=== PATIENT | male | born 1950 | race Hispanic/Latino ===

== ENCOUNTER 2017-12-09 09:09 | Day surgery (SDC) | payer BC ==
[2017-12-07 08:15] VITALS: BMI 29.0
[2017-12-09] MEDS ORDERED: Bupivacaine 0.5% Inj(30mL) ONE (11:02)
[2017-12-09] MEDS ORDERED: Midazolam 2 MG/2 ML VIAL ONE (11:11)
[2017-12-09] MEDS ORDERED: Propofol 10 mg/ml Inj (20 ML) ONE (11:11)
[2017-12-09] MEDS ORDERED: Rocuronium 10 mg/ml (5 ml) ONE (11:12)
[2017-12-09] MEDS ORDERED: Phenylephrine 10 mg/ml Inj ONE (12:04)
[2017-12-09] MEDS ORDERED: Neostigmine Methylsulfate 3mg/3ml Syringe IV ONE (13:39)
[2017-12-09] MEDS ORDERED: HYDROmorphone 0.5 mg/0.5 ml ISec IVP PRN ×2 (14:04→14:08)
--- NOTE | 2017-12-09 14:06 | PCM.SURG1 ---
Surgeon's Initial Post Op Note - Surgeon's Notes Surgeon: Orin Manager Animation: Liana PGY3, Aurn MSIII Type of Anesthesia: General Endo, Local Pre-Operative Diagnosis: Incisional hernia Operative Findings: Incerceated incisional hernia Post-Operative Diagnosis: same Operation Performed: laparoscopic incisional hernia repair w. mesh Specimen/Specimens Removed: hernia sac Estimated Blood Loss: EBL {In ML}: 5 Blood Products Given: N/A Drains Used: No Drains Post-Op Condition: Good Date of Surgery/Procedure: 12/09/17 Time of Surgery/Procedure: 14:06
[2017-12-09 14:22] VITALS: RESP 18
[2017-12-09 14:59] VITALS: TEMP 97.6
[2017-12-09 18:58] VITALS: BP 134/72; PULSE 70; O2SAT 99
--- NOTE | 2017-12-18 18:36 | OP ---
PROCEDURE DATE: 12/09/2017 PREOPERATIVE DIAGNOSIS: Incarcerated incisional hernia. POSTOPERATIVE DIAGNOSIS: Incarcerated incisional hernia. PROCEDURE PERFORMED: Laparoscopic repair of incarcerated incisional hernia with Symbotex mesh. SURGEON: Shree Sr MD. WINDOW UNIT [employer] CONDITIONING MECHANIC: Dr. Gaines. ANESTHESIA: General endotracheal anesthesia. ANESTHESIOLOGIST: As per OR record. SPECIMEN: Hernia sac. INDICATIONS: The patient is a 66-year-old male with a history of midline abdominal bulge associated with tenderness and discomfort. The patient was seen in the office, noted to have an incisional hernia, associated with tenderness and discomfort and partially reducible. The patient was scheduled for the laparoscopic repair of the hernia. DESCRIPTION OF PROCEDURE: The patient was brought to the operating room, placed on the operating table in supine position. The patient was connected to the EKG, blood pressure, and pulse oximetry monitors. The patient then underwent general endotracheal anesthesia and was prepped and draped in the usual sterile fashion. First using lidocaine with some Marcaine, the area of the left subcostal margin was infiltrated and carefully under direct visualization through the Visiport, a 12 mm trocar was inserted into the abdominal cavity. Once pneumoperitoneum was obtained, a careful evaluation of abdominal cavity revealed the presence of omentum stuck in the incisional hernia. A second 5 mm trocar was inserted in the left lower quadrant and careful dissection began in order to dissect out the hernia sac. Once omentum was completely removed from the hernia and appeared to be viable, we then proceeded with removing the hernia sac and sending it as a specimen. The area of the hernia defect was carefully evaluated and appeared to be about 2-2.5 cm in diameter. A 12 cm patch of Symbotex mesh was then placed into the abdominal cavity and pulled against the defect with exposed portion of the mesh. That was then tacked to the abdominal wall in two rows of tacks, one at the edge of the mesh and was about 2 cm closer to the defect. The patch appeared to be lying perfectly well and the defect was covered and the underlying tissue appeared to have no evidence of any bleeding. At this point, we started releasing pneumoperitoneum carefully and checked both trocars and there was no bleeding noted. Once the pneumoperitoneum was completely released, trocars were removed and the wounds closed in layers using 0 Vicryl for the fascia, 3-0 Vicryl for the subcutaneous tissue, and 4-0 Monocryl for the skin. Sterile Dermabond dressing was applied to the wound. The patient tolerated the procedure well and there were no complications. The patient was awakened and transferred to the recovery room for further observation. Shree Sr MD MTDD
== END 2017-12-09 19:00 | disposition home or self-care (01) ==
LOC: SDS 09:09
PROVIDERS: ATTEND General Practice
DX: K43.0 Incisional hernia with obstruction, without gangrene (principal); I10 Essential (primary) hypertension
CPT/HCPCS: 49655; 88302; C1781; J0690; J1100; J1885; J2001; J2250; J2405; J2704; J2710; J3010; J7120

== ENCOUNTER 2018-01-01 13:04 | Emergency (ER) | payer MEDICARE, BC ==
[2018-01-01 13:04] VITALS: BMI 29.0
[2018-01-01 13:27] VITALS: RESP 18
[2018-01-01] MEDS ORDERED: Sodium Chloride 0.9% 1,000 ML IV STA (13:45)
[2018-01-01] MEDS ORDERED: Iohexol 350 MG/100 ML VIAL ONE (13:58)
[2018-01-01] MEDS ORDERED: Iohexol 240 (50 ml) ONE (13:58)
[2018-01-01 14:15] LABS: VENOUS BLOOD GAS BASE EXCESS 7.3 mmol/L (0.0-2.0); VENOUS BLOOD GAS PO2 49 mm/Hg (30-55); VENOUS BLOOD PH 7.41 (7.32-7.43)
[2018-01-01 14:20] LABS: BASO # 0.03 K/mm3 (0.0-2.0); BASO % 0.3 % (0.0-3.0); EOS # 0.2 (0.0-0.7); EOS % 2.7 % (1.5-5.0); GRAN # 6.18 (1.4-6.5); GRAN % 70.8 % (50.0-68.0); HEMOGLOBIN 12.7 g/dL (14.0-18.0); LYMPH # 1.6 (1.2-3.4); LYMPH % 17.8 % (22.0-35.0); MEAN CELL VOLUME 85.3 fl (80.0-105.0); MEAN CORPUSCULAR HEMOGLOBIN 29.3 pg (25.0-35.0); MEAN CORPUSCULAR HGB CONC 34.3 g/dl (31.0-37.0); MEAN PLATELET VOLUME 9.6 fl (7.0-11.0); MONO # 0.7 (0.1-0.6); MONO % 8.4 % (1.0-6.0); RBC 4.34 10^6/uL (3.5-6.1); RED CELL DISTRIBUTION WIDTH 13.6 % (11.5-14.5); WHITE BLOOD COUNT 8.7 10^3/ul (4.5-11.0)
[2018-01-01 14:24] LABS: ALB/GLOB RATIO 1.3 (1.1-1.8); ALBUMIN 3.8 g/dL (3.0-4.8); ALT/SGPT 30 U/L (7-56); AST/SGOT 22 U/L (17-59); BLOOD UREA NITROGEN 12 mg/dL (7-21); CALCIUM 8.9 mg/dL (8.4-10.5); GFR AFRICAN-AMERICAN > 60; GFR NON-AFRICAN AMERICAN > 60; LIPASE 64 U/L (23-300)
[2018-01-01 14:36] LABS: INR 1.14 (0.93-1.08)
[2018-01-01] MEDS ORDERED: Potassium Chloride 20 mEq ER Tab PO STA (14:49)
[2018-01-01 15:40] LABS: URINE BILIRUBIN NEGATIVE (NEGATIVE); URINE BLOOD NEGATIVE (NEGATIVE); URINE GLUCOSE (UA) NEGATIVE (NEGATIVE); URINE LEUKOCYTE ESTERASE NEGATIVE Leu/uL (NEGATIVE); URINE PROTEIN NEGATIVE mg/dL (<30 mg/dL); URINE UROBILINOGEN 0.2 E.U./dL (<1 E.U./dL)
[2018-01-01 15:41] LABS: URINE APPEARANCE CLEAR (CLEAR); URINE COLOR YELLOW (YELLOW)
--- NOTE | 2018-01-01 17:04 | CT ---
PROCEDURE: CT Abdomen and Pelvis with contrast HISTORY: Abdominal pain. Relevant surgical history: Recent hernia repair. Presenting with symptoms of constipation COMPARISON: 03/10/2016 abdominal ultrasound TECHNIQUE: Contrast dose: 100 cc Omnipaque 350 Radiation dose: Total exam DLP = mGy-cm. This CT exam was performed using one or more of the following dose reduction techniques: Automated exposure control, adjustment of the mA and/or kV according to patient size, and/or use of iterative reconstruction technique. FINDINGS: LOWER THORAX: Unremarkable. LIVER: Hepatic steatosis. No focal masses. No intrahepatic bile duct dilatation or perihepatic ascites. . Incidental finding(s): Several tiny less than 1 cm simple cysts. GALLBLADDER AND BILE DUCTS: Unremarkable. PANCREAS: Unremarkable. No gross lesion or ductal dilatation. SPLEEN: Unremarkable. ADRENALS: Unremarkable. No mass. KIDNEYS AND URETERS: Small, less than 3 mm bilateral nonobstructing renal calculi. . No hydronephrosis. No solid mass. Incidental finding(s): Simple cyst projecting off the inferior aspect of the right kidney measuring less than 1 cm VASCULATURE: Unremarkable. No aortic aneurysm. BOWEL: Twenty-three changes involving distal ileum/terminal ileum extending to the ileocecal valve, sparing the adjacent cecum. The appendix is not visualized. Severe diverticular disease primarily affecting left hemicolon. There is marked thickening of the wall of the descending colon and sigmoid at the site of diverticular disease. However in the absence of oral contrast in this location is difficult to rule out superimposed acute diverticulitis. APPENDIX: Nonvisualized cyst PERITONEUM: Low volume intra-abdominal and pelvic ascites. LYMPH NODES: Unremarkable. No enlarged lymph nodes. BLADDER: Unremarkable. REPRODUCTIVE: Unremarkable. BONES: No acute fracture. OTHER FINDINGS: Anterior abdominal wall fluid collection midline presumably related to recent hernia surgery. This measures 3.9 x 4.6 cm and is more phlegmonous than well-defined. Inflammatory changes extend into the peritoneal cavity throughout diastases/postoperative changes 2.8 cm wide. Inflammatory changes or postoperative change abut adjacent small bowel. There is no discrete drainable collection or visualize sinus tract. IMPRESSION: 1. Postoperative changes presumed to account for phlegmonous process midline anterior abdominal wall extending from the skin surface through a A-comm component of diastases of the rectum. Subjacent intraperitoneal postoperative/inflammatory changes without drainable collection. 2. Short segment terminal ileitis-distal without involvement of the ileocecal valve cecum. 3. Profound diverticular cc, questionable superimposed sigmoid diverticulitis. 4. Low volume intra-abdominal and pelvic ascites. Additional benign and/or incidental findings described above.
--- NOTE | 2018-01-01 18:03 | ED PDOC ---
Arrival/HPI - General Chief Complaint: Abdominal Pain Time Seen by Provider: 01/01/18 13:12 Historian: Patient - History of Present Illness Narrative History of Present Illness (Text): 01/01/18 17:37 A 67 year old male, whose past medical history includes hypertension and diverticulitis, presents to the emergency department complaining of diffusely abdominal pain since yesterday. Patient reports also experiencing subjective fever and nausea. Patient denies any vomiting, diarrhea, bloody stool, hematuria , or any other complaints at this time. Also, patient mentions having umbilical hernia repair on 12/09/2017. No PMD Time/Duration: 24 hours Past Medical History - Provider Review Nursing Documentation Reviewed: Yes - Infectious Disease Hx of Infectious Diseases: None - Cardiac Hx Hypertension: Yes Hx Pacemaker: No - Pulmonary Hx Respiratory Disorders: No - Neurological Hx Paralysis: No - HEENT Other/Comment: detached retina - Renal Hx Renal Disorder: No - Endocrine/Metabolic Hx Endocrine Disorders: No - Hematological/Oncological Hx Blood Transfusions: No - Integumentary Hx Dermatological Disorder: No - Musculoskeletal/Rheumatological Hx Musculoskeletal Disorders: No - Gastrointestinal Hx Diverticulitis: Yes Other/Comment: Umbilical hernia - s/p repair with mesh 3 weeks ago from 01/01/18 - Genitourinary/Gynecological Hx Genitourinary Disorders: No - Psychiatric Hx Psychophysiologic Disorder: No Hx Substance Use: No - Surgical History Hx Cholecystectomy: Yes - Anesthesia Hx Anesthesia: Yes Hx Anesthesia Reactions: No Hx Malignant Hyperthermia: No Family/Social History - Physician Review Nursing Documentation Reviewed: Yes Family/Social History: No Known Family HX Smoking Status: Never Smoked Hx Alcohol Use: No Hx Substance Use: No Allergies/Home Meds Allergies/Adverse Reactions: Allergies No Known Allergies Allergy (Verified 03/10/16 18:20) Home Medications: Home Meds Medication Instructions Recorded Confirmed amLODIPine [Norvasc] 10 mg PO DAILY 03/13/16 12/09/17 Ascorbic Acid [Vitamin C] 2,000 units PO DAILY 12/07/17 12/09/17 Blue-Green Algae [Spirulina] 3,000 mg PO DAILY 12/07/17 12/09/17 Cholecalciferol [Vitamin D 1000 IU] 1,000 mg PO DAILY 12/07/17 12/09/17 Cod Liver Oil [Cod Liver Oil] 1 tab PO DAILY 12/07/17 12/09/17 Doctors Best Comprehensive 1 tab PO DAILY 12/07/17 12/09/17 Prostate Formula Flaxseed Oil [Flax Oil] 1 tab PO DAILY 12/07/17 12/09/17 Garlic [Odor Free Garlic-X] 1 tab PO DAILY 12/07/17 12/09/17 Gluc/Kee-MSM#1/C/Yunior/Jluis/Bor 1 tab PO DAILY 12/07/17 12/09/17 [Osteo Bi-Flex Caplet] L-Argenine 1,000 mg PO BID 12/07/17 12/09/17 Multivitamin [Daily Kendell] 1 tab PO DAILY 12/07/17 12/09/17 Pycnogenol 50 mg PO DAILY 12/07/17 12/09/17 Ubidecarenone/Vit E Acet [Co Q-10 100 mg PO DAILY 12/07/17 12/09/17 100 mg Softgel] traMADol [Ultram] 50 mg PO Q6H PRN 12/09/17 12/09/17 Review of Systems - Physician Review All systems were reviewed & negative as marked: Yes - Review of Systems Constitutional: Fevers (subjective) Gastrointestinal: Abdominal Pain, Nausea. absent: Stool Changes (no bloody stool), Diarrhea, Vomiting Genitourinary Male: absent: Hematuria Physical Exam Vital Signs Reviewed: Yes Vital Signs Temp Pulse Resp BP Pulse Ox 01/01/18 18:03 98.2 F 72 18 135/80 98 01/01/18 16:25 82 18 133/88 96 01/01/18 13:04 98.6 F 86 18 125/93 H 93 L Temperature: Afebrile Blood Pressure: Normal Pulse: Regular Respiratory Rate: Normal Appearance: Positive for: Well-Appearing Pain Distress: None Mental Status: Positive for: Alert and Oriented X 3 - Systems Exam Respiratory/Chest: Present: Clear to Auscultation, Good Air Exchange. No: Respiratory Distress, Accessory Muscle Use Cardiovascular: Present: Regular Rate and Rhythm, Normal S1, S2. No: Murmurs Abdomen: Present: Tenderness (diffusely), Other (2 surgical scars from past surgery) Upper Extremity: Present: Normal Inspection. No: Cyanosis, Edema Lower Extremity: Present: Normal Inspection. No: Edema Neurological: Present: GCS=15, CN II-XII Intact, Speech Normal Skin: Present: Warm, Dry, Normal Color. No: Rashes Psychiatric: Present: Alert, Oriented x 3, Normal Insight, Normal Concentration Medical Decision Making ED Course and Treatment: 01/01/18 17:41 Impression: 67 year old male with diffuse abdominal tenderness, nausea, and subjective fever. Physical exam shows abdominal tenderness, 2 surgical scars from past surgery on abdomen. Plan: -- Abd/Pelvis CT -- Cipro -- Flagyl -- Potassium Chloride K-Dur -- Labs -- Blood Culture -- Urine Culture -- IV Fluids -- Urinalysis -- Reassess and disposition Progress Notes: 01/01/2018 17:03 Abd/Pelvis CT FINDINGS: LOWER THORAX: Unremarkable. LIVER: Hepatic steatosis. No focal masses. No intrahepatic bile duct dilatation or perihepatic ascites. . Incidental finding(s): Several tiny less than 1 cm simple cysts. GALLBLADDER AND BILE DUCTS: Unremarkable. PANCREAS: Unremarkable. No gross lesion or ductal dilatation. SPLEEN: Unremarkable. ADRENALS: Unremarkable. No mass. KIDNEYS AND URETERS: Small, less than 3 mm bilateral nonobstructing renal calculi. . No hydronephrosis. No solid mass. Incidental finding(s): Simple cyst projecting off the inferior aspect of the right kidney measuring less than 1 cm VASCULATURE: Unremarkable. No aortic aneurysm. BOWEL: Twenty-three changes involving distal ileum/terminal ileum extending to the ileocecal valve, sparing the adjacent cecum. The appendix is not visualized. Severe diverticular disease primarily affecting left hemicolon. There is marked thickening of the wall of the descending colon and sigmoid at the site of diverticular disease. However in the absence of oral contrast in this location is difficult to rule out superimposed acute diverticulitis. APPENDIX: Nonvisualized cyst PERITONEUM: Low volume intra-abdominal and pelvic ascites. LYMPH NODES: Unremarkable. No enlarged lymph nodes. BLADDER: Unremarkable. REPRODUCTIVE: Unremarkable. BONES: No acute fracture. OTHER FINDINGS: Anterior abdominal wall fluid collection midline presumably related to recent hernia surgery. This measures 3.9 x 4.6 cm and is more phlegmonous than well- defined. Inflammatory changes extend into the peritoneal cavity throughout diastases/postoperative changes 2.8 cm wide. Inflammatory changes or postoperative change abut adjacent small bowel. There is no discrete drainable collection or visualize sinus tract. IMPRESSION: 1. Postoperative changes presumed to account for phlegmonous process midline anterior abdominal wall extending from the skin surface through a A-comm component of diastases of the rectum. Subjacent intraperitoneal postoperative/ inflammatory changes without drainable collection. 2. Short segment terminal ileitis-distal without involvement of the ileocecal valve cecum. 3. Profound diverticular cc, questionable superimposed sigmoid diverticulitis. 4. Low volume intra-abdominal and pelvic ascites. Additional benign and/or incidental findings described above. Dictator: Yunier Warren MD 01/01/18 17:[address] Dixon about patient's results. Plan is for patient to be treated as outpatient. Dr. Dixon will see patient tomorrow morning. - Lab Interpretations Lab Results: 01/01/18 14:10 01/01/18 14:10 Lab Results 01/01/18 15:36: Urine Color Yellow, Urine Appearance Clear, Urine pH 7.0, Ur Specific [place] 1.010, Urine Protein Negative, Urine Glucose (UA) Negative, Urine Ketones Trace H, Urine Blood Negative, Urine Nitrate Negative, Urine Bilirubin Negative, Urine Urobilinogen 0.2, Ur Leukocyte Esterase Negative 01/01/18 14:10: pO2 49, VBG pH 7.41, VBG pCO2 53.0, VBG HCO3 33.6 H, VBG Total CO2 35.2 H, VBG O2 Sat (Calc) 88.9 H, VBG Base Excess 7.3 H, VBG Potassium 2.7 L , Sodium 141.0, Chloride 104.0, Glucose 107, Lactate 0.9, FiO2 21.0, Venous Blood Potassium 2.7 L 01/01/18 14:10: Sodium 145, Chloride 103, Potassium 3.0 L, Carbon Dioxide 30, Anion Gap 15, BUN 12, Creatinine 0.9, Est GFR ( Amer) > 60, Est GFR (Non- Af Amer) > 60, Random Glucose 105, Calcium 8.9, Magnesium 2.1, Total Bilirubin 0.8, AST 22, ALT 30, Alkaline Phosphatase 52, Total Protein 6.7, Albumin 3.8, Globulin 3.0, Albumin/Globulin Ratio 1.3, Lipase 64 01/01/18 14:10: PT 13.0 H, INR 1.14 H, APTT 32.0 01/01/18 14:10: WBC 8.7 D, RBC 4.34, Hgb 12.7 L, Hct 37.0 L, MCV 85.3, MCH 29.3 , MCHC 34.3, RDW 13.6, Plt Count 223, MPV 9.6, Gran % 70.8 H, Lymph % (Auto) 17.8 L, Whitman % (Auto) 8.4 H, Eos % (Auto) 2.7, Baso % (Auto) 0.3, Gran # 6.18, Lymph # (Auto) 1.6, Whitman # (Auto) 0.7 H, Eos # (Auto) 0.2, Baso # (Auto) 0.03 I have reviewed the lab results: Yes - RAD Interpretation Radiology Orders: 01/01/18 13:45 ABD PELVIS PO & IV CONTRAST [CT] Stat - Medication Orders Current Medication Orders: Discontinued Medications Ciprofloxacin (Cipro) 500 mg PO STAT STA PRN Reason: Protocol Stop: 01/01/18 17:42 Last Admin: 01/01/18 17:53 Dose: 500 mg Sodium Chloride (Sodium Chloride 0.9%) 1,000 mls @ 250 mls/hr IV .Q4H STA Stop: 01/01/18 17:44 Last Admin: 01/01/18 14:15 Dose: 250 mls/hr eMAR Start Stop Document 01/01/18 14:15 GMD (Rec: 01/01/18 14:15 GMD [id number]) Intravenous Solution Start Date 01/01/18 Start Time 14:15 End Date 01/01/18 End time 18:15 Total Infusion Time 240 Metronidazole (Flagyl) 500 mg PO STAT STA PRN Reason: Protocol Stop: 01/01/18 17:42 Last Admin: 01/01/18 17:53 Dose: 500 mg Potassium Chloride (K-Dur 20 Meq Er Tab) 40 meq PO STAT STA Stop: 01/01/18 14:50 Last Admin: 01/01/18 15:15 Dose: 40 meq - Scribe Statement The provider has reviewed the documentation as recorded by the [place] Provider Scribe Attestation: All medical record entries made by the Scribe were at my direction and personally dictated by me. I have reviewed the chart and agree that the record accurately reflects my personal performance of the history, physical exam, medical decision making, and the department course for this patient. I have also personally directed, reviewed, and agree with the discharge instructions and disposition. Disposition/Present on Arrival - Present on Arrival Any Indicators Present on Arrival: No History of DVT/PE: No History of Uncontrolled Diabetes: No Urinary Catheter: No History of Decub. Ulcer: No History Surgical Site Infection Following: None - Disposition Have Diagnosis and Disposition been Completed?: Yes Diagnosis: Diverticulitis Disposition: HOME/ ROUTINE Disposition Time: 14:30 Condition: GOOD Discharge Instructions (ExitCare): Diverticulitis (DC) Additional Instructions: Thank you for letting us take care of you today. The emergency medical care you received today was directed at your acute symptoms. If you were prescribed any medication, please fill it and take as directed. It may take several days for your symptoms to resolve. Return to the Emergency Department if your symptoms worsen, do not improve, or if you have any other problems. Please contact your doctor or call one of the physicians/clinics you have been referred to that are listed on the Patient Visit Information form that is included in your discharge packet. Bring any paperwork you were given at discharge with you along with any medications you are taking to your follow up visit. Our treatment cannot replace ongoing medical care by a primary care provider (PCP) outside of the emergency department. Thank you for allowing the [facility] team to be part of your care today. Follow up with your doctor tomorrow morning for re-evaluation and further management. Prescriptions: Ciprofloxacin [Cipro] 500 mg PO BID #20 tab metroNIDAZOLE [Flagyl] 500 mg PO Q8 #30 tab Referrals: Leonidas Dixon MD [Family Provider] - Follow up with primary Forms: [place] (Romanian)
[2018-01-01 18:05] VITALS: BP 135/80; PULSE 72; TEMP 98.2; O2SAT 98
== END 2018-01-01 18:38 | disposition home or self-care (01) ==
LOC: ED 13:04
DX: K57.92 Diverticulitis of intestine, part unspecified, without perforation or abscess without bleeding (principal); I10 Essential (primary) hypertension; Z90.49 Acquired absence of other specified parts of digestive tract
CPT/HCPCS: 74177; 80053; 81003; 82803; 83690; 83735; 85025; 85610; 85730; 87040; 87086; 96360; 96361; 99284; J7040; Q9966; Q9967

== ENCOUNTER 2018-06-15 13:37 | Observation (INO) | payer BC, MEDICARE ==
[2018-06-15 14:51] LABS: BASO # 0.05 K/mm3 (0.0-2.0); BASO % 0.9 % (0.0-3.0); EOS # 0.2 (0.0-0.7); EOS % 3.7 % (1.5-5.0); GRAN # 3.4 (1.4-6.5); GRAN % 59.9 % (50.0-68.0); HEMOGLOBIN 13.2 g/dL (14.0-18.0); LYMPH # 1.5 (1.2-3.4); LYMPH % 27.2 % (22.0-35.0); MEAN CELL VOLUME 85.6 fl (80.0-105.0); MEAN CORPUSCULAR HEMOGLOBIN 28.8 pg (25.0-35.0); MEAN CORPUSCULAR HGB CONC 33.6 g/dl (31.0-37.0); MEAN PLATELET VOLUME 10.2 fl (7.0-11.0); MONO # 0.5 (0.1-0.6); MONO % 8.3 % (1.0-6.0); RBC 4.59 10^6/uL (3.5-6.1); RED CELL DISTRIBUTION WIDTH 14.8 % (11.5-14.5); WHITE BLOOD COUNT 5.7 10^3/uL (4.5-11.0)
[2018-06-15 15:09] LABS: TROPONIN I < 0.01 ng/mL
--- NOTE | 2018-06-15 15:12 | RAD ---
Date of service: 06/15/2018 HISTORY: abnormal labs COMPARISON: 03/10/2016 FINDINGS: LUNGS: No active pulmonary disease. PLEURA: No significant pleural effusion identified, no pneumothorax apparent. CARDIOVASCULAR: No aortic atherosclerotic calcification present. Mild cardiomegaly and aortic tortuosity no pulmonary vascular congestion. OSSEOUS STRUCTURES: No significant abnormalities. VISUALIZED UPPER ABDOMEN: Normal. OTHER FINDINGS: None. IMPRESSION: No active disease.
--- NOTE | 2018-06-15 15:16 | ED PDOC ---
Arrival/HPI - General Chief Complaint: Abnormal Labs Time Seen by Provider: 06/15/18 13:38 Historian: Patient - History of Present Illness Narrative History of Present Illness (Text): 06/15/18 15:12 67-year-old male presents today sent in by Dr. Dixon for admission for abnormal labs. Per Dr. Fleming the patient states potassium is low. The patient denies any chest pain or shortness of breath. Denies dizziness or weakness. He denies fevers or chills. No abdominal pain. No nausea or vomiting. Patient denies any urinary symptoms. Patient denies any complaints. Past Medical History - Provider Review Nursing Documentation Reviewed: Yes - Travel History Have you recently traveled outside [place] w/in the past 3 mons?: No - Infectious Disease Hx of Infectious Diseases: None - Cardiac Hx Hypertension: Yes Hx Pacemaker: No - Pulmonary Hx Respiratory Disorders: No - Neurological Hx Paralysis: No - HEENT Other/Comment: detached retina - Renal Hx Renal Disorder: No - Endocrine/Metabolic Hx Endocrine Disorders: No - Hematological/Oncological Hx Blood Transfusions: No - Integumentary Hx Dermatological Disorder: No - Musculoskeletal/Rheumatological Hx Musculoskeletal Disorders: No - Gastrointestinal Hx Diverticulitis: Yes Other/Comment: Umbilical hernia - s/p repair with mesh 3 weeks ago from 01/01/18 - Genitourinary/Gynecological Hx Genitourinary Disorders: No - Psychiatric Hx Psychophysiologic Disorder: No Hx Substance Use: No - Surgical History Hx Cholecystectomy: Yes - Anesthesia Hx Anesthesia: Yes Hx Anesthesia Reactions: No Hx Malignant Hyperthermia: No Family/Social History - Physician Review Nursing Documentation Reviewed: Yes Family/Social History: Unknown Family HX Smoking Status: Never Smoked Hx Alcohol Use: No Hx Substance Use: No Allergies/Home Meds Allergies/Adverse Reactions: Allergies No Known Allergies Allergy (Verified 06/15/18 18:38) Home Medications: Home Meds Medication Instructions Recorded Confirmed amLODIPine [Norvasc] 10 mg PO DAILY 03/13/16 12/09/17 Ascorbic Acid [Vitamin C] 2,000 units PO DAILY 12/07/17 12/09/17 Blue-Green Algae [Spirulina] 3,000 mg PO DAILY 12/07/17 12/09/17 Cholecalciferol [Vitamin D 1000 IU] 1,000 mg PO DAILY 12/07/17 12/09/17 Cod Liver Oil 1 tab PO DAILY 12/07/17 12/09/17 Doctors Best Comprehensive 1 tab PO DAILY 12/07/17 12/09/17 Prostate Formula Flaxseed Oil [Flax Oil] 1 tab PO DAILY 12/07/17 12/09/17 Garlic [Odor Free Garlic-X] 1 tab PO DAILY 12/07/17 12/09/17 Gluc/Kee-MSM#1/C/Yunior/Jluis/Bor 1 tab PO DAILY 12/07/17 12/09/17 [Osteo Bi-Flex Caplet] L-Argenine 1,000 mg PO BID 12/07/17 12/09/17 Multivitamin [Daily [place]] 1 tab PO DAILY 12/07/17 12/09/17 Pycnogenol 50 mg PO DAILY 12/07/17 12/09/17 Ubidecarenone/Vit E Acet [Co Q-10 100 mg PO DAILY 12/07/17 12/09/17 100 mg Softgel] traMADol [Ultram] 50 mg PO Q6H PRN 12/09/17 12/09/17 Review of Systems - Review of Systems Constitutional: absent: Fatigue, Fevers Respiratory: absent: SOB, Cough Cardiovascular: absent: Chest Pain, Palpitations Gastrointestinal: absent: Abdominal Pain, Constipation, Diarrhea, Nausea, Vomiting Genitourinary Male: absent: Dysuria, Frequency, Hematuria Musculoskeletal: absent: Arthralgias, Back Pain, Neck Pain Skin: absent: Rash, Pruritis Psychiatric: absent: Anxiety, Depression Physical Exam Vital Signs Reviewed: Yes Vital Signs Temp Pulse Resp BP Pulse Ox 06/15/18 14:21 98.1 F 84 18 146/88 95 Temperature: Afebrile Blood Pressure: Normal Pulse: Regular Respiratory Rate: Normal Appearance: Positive for: Well-Appearing, Non-Toxic, Comfortable Pain Distress: None Mental Status: Positive for: Alert and Oriented X 3 - Systems Exam Head: Present: Atraumatic Mouth: Present: Moist Mucous Membranes Neck: Present: Normal Range of Motion Respiratory/Chest: Present: Clear to Auscultation, Good Air Exchange. No: Respiratory Distress, Accessory Muscle Use Cardiovascular: Present: Regular Rate and Rhythm, Normal S1, S2. No: Murmurs Abdomen: No: Tenderness, Distention, Peritoneal Signs, Rebound, Guarding Back: Present: Normal Inspection Upper Extremity: Present: Normal ROM Lower Extremity: Present: Normal ROM. No: Edema Neurological: Present: GCS=15, Speech Normal Skin: Present: Warm, Dry, Normal Color. No: Rashes Psychiatric: Present: Alert, Oriented x 3 Medical Decision Making ED Course and Treatment: 06/15/18 15:14 67-year-old male presents today for hypokalemia sent in by his PMD for admission patient denies any complaints. CBC within normal limits CMP k; 2.9 Magnesium; wnl Urinalysis Chest x-ray shows no infiltrate or effusion no cardiomegaly EKG shows normal sinus rhythm at 82 bpm, normal axis, lvh, qtc [address] estevez; accepts observational status to med/surg impression; hypokalemia admit observational status to med/surg - Lab Interpretations Lab Results: 06/15/18 14:30 06/15/18 14:30 Lab Results 06/15/18 14:30: WBC 5.7, RBC 4.59, Hgb 13.2 L, Hct 39.3 L, MCV 85.6, MCH 28.8, MCHC 33.6, RDW 14.8 H, Plt Count 203, MPV 10.2, Gran % 59.9, Lymph % (Auto) 27.2, [place] % (Auto) 8.3 H, Eos % (Auto) 3.7, Baso % (Auto) 0.9, Gran # 3.40, Lymph # (Auto) 1.5, [place] # (Auto) 0.5, Eos # (Auto) 0.2, Baso # (Auto) 0.05 06/15/18 14:30: Sodium Pending, Potassium Pending, Chloride Pending, Carbon Dioxide Pending, Anion Gap Pending, BUN Pending, Creatinine Pending, Est GFR ( Amer) Pending, Est GFR (Non-Af Amer) Pending, Random Glucose Pending, Calcium Pending, Phosphorus Pending, Magnesium Pending, Total Bilirubin Pending, AST Pending, ALT Pending, Alkaline Phosphatase Pending, Lactate Dehydrogenase Pending, Total Creatine Kinase Pending, Troponin I < 0.01, Total Protein Pending, Albumin Pending, Globulin Pending, Albumin/Globulin Ratio Pending - RAD Interpretation Radiology Orders: 06/15/18 13:52 CHEST PORTABLE [RAD] Stat Disposition/Present on Arrival - Present on Arrival Any Indicators Present on Arrival: No History of DVT/PE: No History of Uncontrolled Diabetes: No Urinary Catheter: No History of Decub. Ulcer: No History Surgical Site Infection Following: None - Disposition Have Diagnosis and Disposition been Completed?: Yes Diagnosis: Hypokalemia Disposition: HOSPITALIZED Disposition Time: 15:16 Patient Plan: Observation Patient Problems: Current Active Problems Problem Status Onset Hypokalemia Acute Condition: FAIR
[2018-06-15 15:23] LABS: ALB/GLOB RATIO 1.4 (1.1-1.8); ALBUMIN 4.2 g/dL (3.0-4.8); ALT/SGPT 45 U/L (7-56); AST/SGOT 39 U/L (17-59); BLOOD UREA NITROGEN 18 mg/dL (7-21); CALCIUM 9.8 mg/dL (8.4-10.5); GFR NON-AFRICAN AMERICAN > 60
[2018-06-15] MEDS ORDERED: Potassium Chloride 20 mEq ER Tab PO STA (15:26)
[2018-06-15] MEDS ORDERED: Potassium Chloride 20 mEq 100 ML IVPB ONE (15:26)
[2018-06-15 15:33] LABS: URINE BILIRUBIN NEGATIVE (NEGATIVE); URINE BLOOD NEGATIVE (NEGATIVE); URINE GLUCOSE (UA) NEGATIVE (NEGATIVE); URINE LEUKOCYTE ESTERASE NEGATIVE Leu/uL (NEGATIVE); URINE PROTEIN NEGATIVE mg/dL (<30 mg/dL); URINE UROBILINOGEN 0.2 E.U./dL (<1 E.U./dL)
[2018-06-15 15:34] LABS: URINE APPEARANCE CLEAR (CLEAR); URINE COLOR STRAW (YELLOW)
--- NOTE | 2018-06-15 18:21 | CARD ---
APPROVED REPORT Date of service: 06/15/2018 EKG Measurement Heart [id number] <Conclusion> Normal sinus rhythm Left ventricular hypertrophy with QRS widening Nonspecific ST and T wave abnormality Prolonged QT Abnormal ECG
[2018-06-15] MEDS ORDERED: Potassium Chloride 20 mEq ER Tab PO ONE ×2 (18:25→22:16)
[2018-06-15 21:33] VITALS: BMI 29.4
[2018-06-15] MEDS ORDERED: Pneumococcal 23-Valent Vaccine IM ONE (21:33)
[2018-06-15] MEDS ORDERED: Influenza Vaccine 60 mcg/0.5 mL SYR (4YR UP) IM ONE (21:33)
[2018-06-16 06:47] VITALS: BP 140/97
[2018-06-16 07:11] LABS: HEMOGLOBIN 12.7 g/dL (14.0-18.0); MEAN CELL VOLUME 85.9 fl (80.0-105.0); MEAN CORPUSCULAR HEMOGLOBIN 28.4 pg (25.0-35.0); MEAN CORPUSCULAR HGB CONC 33.1 g/dl (31.0-37.0); MEAN PLATELET VOLUME 9.9 fl (7.0-11.0); RBC 4.47 10^6/uL (3.5-6.1); RED CELL DISTRIBUTION WIDTH 14.9 % (11.5-14.5); WHITE BLOOD COUNT 4.8 10^3/uL (4.5-11.0)
[2018-06-16 07:40] LABS: ALB/GLOB RATIO 1.3 (1.1-1.8); ALBUMIN 3.8 g/dL (3.0-4.8); ALT/SGPT 37 U/L (7-56); AST/SGOT 36 U/L (17-59); BLOOD UREA NITROGEN 16 mg/dL (7-21); CALCIUM 9.2 mg/dL (8.4-10.5); GFR NON-AFRICAN AMERICAN > 60
[2018-06-16 08:37] VITALS: PULSE 67; RESP 20; TEMP 97.8; O2SAT 97
[2018-06-16] MEDS ORDERED: Potassium Chloride 20 mEq ER Tab PO ONE (09:00)
--- NOTE | 2018-06-16 09:16 | CP.PCM.DIS ---
<Barrington Franklin - Last Filed: 06/16/18 16:01> Provider - Provider Date of Admission: 06/15/18 15:28 Attending physician: Ruel Freitas MD Primary care physician: Leonidas Dixon MD Time Spent in preparation of Discharge (in minutes): 35 Diagnosis - Discharge Diagnosis (1) Hypokalemia Status: Chronic (2) Hypertension Status: Chronic Hospital Course - Lab Results Lab Results: Most Recent Lab Values WBC 4.8 10^3/uL (4.5-11.0) 06/16/18 06:45 RBC 4.47 10^6/uL (3.5-6.1) 06/16/18 06:45 Hgb 12.7 g/dL (14.0-18.0) L 06/16/18 06:45 Hct 38.4 % (42.0-52.0) L 06/16/18 06:45 MCV 85.9 fl (80.0-105.0) 06/16/18 06:45 MCH 28.4 pg (25.0-35.0) 06/16/18 06:45 MCHC 33.1 g/dl (31.0-37.0) 06/16/18 06:45 RDW 14.9 % (11.5-14.5) H 06/16/18 06:45 Plt Count 185 10^3/uL (120.0-450.0) 06/16/18 06:45 MPV 9.9 fl (7.0-11.0) 06/16/18 06:45 Gran % 59.9 % (50.0-68.0) 06/15/18 14:30 Lymph % (Auto) 27.2 % (22.0-35.0) 06/15/18 14:30 [place] % (Auto) 8.3 % (1.0-6.0) H 06/15/18 14:30 Eos % (Auto) 3.7 % (1.5-5.0) 06/15/18 14:30 Baso % (Auto) 0.9 % (0.0-3.0) 06/15/18 14:30 Gran # 3.40 (1.4-6.5) 06/15/18 14:30 Lymph # (Auto) 1.5 (1.2-3.4) 06/15/18 14:30 [place] # (Auto) 0.5 (0.1-0.6) 06/15/18 14:30 Eos # (Auto) 0.2 (0.0-0.7) 06/15/18 14:30 Baso # (Auto) 0.05 K/mm3 (0.0-2.0) 06/15/18 14:30 Sodium 142 mmol/L (132-148) 06/16/18 06:45 Potassium 3.3 mmol/L (3.6-5.0) L 06/16/18 06:45 Chloride 103 mmol/L (98-107) 06/16/18 06:45 Carbon Dioxide 31 mmol/L (21-33) 06/16/18 06:45 Anion Gap 11 (10-20) 06/16/18 06:45 BUN 16 mg/dL (7-21) 06/16/18 06:45 Creatinine 1.0 mg/dl (0.8-1.5) 06/16/18 06:45 Est GFR ( Amer) > 60 06/16/18 06:45 Est GFR (Non-Af Amer) > 60 06/16/18 06:45 Random Glucose 109 mg/dL (70-110) 06/16/18 06:45 Calcium 9.2 mg/dL (8.4-10.5) 06/16/18 06:45 Phosphorus 3.5 mg/dL (2.5-4.5) 06/16/18 06:45 Magnesium 2.1 mg/dL (1.7-2.2) 06/16/18 06:45 Total Bilirubin 0.4 mg/dL (0.2-1.3) 06/16/18 06:45 AST 36 U/L (17-59) 06/16/18 06:45 ALT 37 U/L (7-56) 06/16/18 06:45 Alkaline Phosphatase 49 U/L (38-126) 06/16/18 06:45 Lactate Dehydrogenase 441 U/L (333-699) 06/15/18 14:30 Total Creatine Kinase 80 U/L (35-230) 06/15/18 14:30 Troponin I < 0.01 ng/mL 06/15/18 14:30 Total Protein 6.6 g/dL (5.8-8.3) 06/16/18 06:45 Albumin 3.8 g/dL (3.0-4.8) 06/16/18 06:45 Globulin 2.8 gm/dL 06/16/18 06:45 Albumin/Globulin Ratio 1.3 (1.1-1.8) 06/16/18 06:45 Urine Color Straw (YELLOW) 06/15/18 15:00 Urine Appearance Clear (CLEAR) 06/15/18 15:00 Urine pH 6.0 (4.7-8.0) 06/15/18 15:00 Ur Specific [place] <= 1.005 (1.005-1.035) 06/15/18 15:00 Urine Protein Negative mg/dL (<30 mg/dL) 06/15/18 15:00 Urine Glucose (UA) Negative mg/dL (NEGATIVE) 06/15/18 15:00 Urine Ketones Negative mg/dL (NEGATIVE) 06/15/18 15:00 Urine Blood Negative (NEGATIVE) 06/15/18 15:00 Urine Nitrate Negative (NEGATIVE) 06/15/18 15:00 Urine Bilirubin Negative (NEGATIVE) 06/15/18 15:00 Urine Urobilinogen 0.2 E.U./dL (<1 E.U./dL) 06/15/18 15:00 Ur Leukocyte Esterase Negative [place]/uL (NEGATIVE) 06/15/18 15:00 - Hospital Course Hospital Course: 67 year old Male with a PMH of HTN, hypokalemia, cholecystitis s/p laparoscopic cholecystectomy, incarcinated incisional hernia s/p laparoscopic hernia repair who presented from Dr. Dixon's office for low potassium. In ED, patient found to be hypertensive with hypokalemia. The patient denieD any symptoms of chest pain, shortness of breath, abdominal pain, nausea/vomiting. CXR was unremarkable. EKG was NSR @ 82bpm, LVH w/ widened QRS, prolonged QTc @ 490. Potassium was supplemented. Patient was started on Aldactone in addition to his regular regimen of Norvasc and Lisiniopril. Serum renin and aldosterone were ordered to r/o hyperaldosteronism as secondary cause of htn. Patient was educated on his medications, and due to negative side-effects of Spironolactone, he instead chose to take Eplerenone. Scripts were provided for Lisinopril and Eplerenone. Patient will keep close watch on his BP and will f/u Dr. Dixon. He is stable in his gait and is asymptomatic. Education was provided regarding HTN, hypokalemia and his medications. Discharge Exam - Head Exam Head Exam: ATRAUMATIC, NORMAL INSPECTION, NORMOCEPHALIC - Eye Exam Eye Exam: EOMI, Normal appearance, PERRL - ENT Exam ENT Exam: Mucous Membranes Moist, Normal Exam, Normal Oropharynx - Neck Exam Neck exam: Full Rom, Normal Inspection - Respiratory Exam Respiratory Exam: Clear to PA & Lateral, NORMAL BREATHING PATTERN. absent: Rale s, Rhonchi, Wheezes, Respiratory Distress - Cardiovascular Exam Cardiovascular Exam: RRR, +S1, +S2. absent: Systolic Murmur - GI/Abdominal Exam GI & Abdominal Exam: Normal Bowel Sounds, Soft, Unremarkable. absent: Distended, Tenderness - Extremities Exam Extremities exam: full ROM, normal inspection, pedal pulses present - Back Exam Back exam: NORMAL INSPECTION - Neurological Exam Neurological exam: Alert, CN II-XII Intact, Normal Gait, Oriented x3, Reflexes Normal - Psychiatric Exam Psychiatric exam: Normal Affect, Normal Mood - Skin Skin Exam: Normal Color, Warm Discharge Plan - Discharge Medications Prescriptions: RX: Losartan [Cozaar] 100 mg PO DAILY #30 tab RX: Eplerenone [Inspra] 50 mg PO DAILY #30 tablet - Follow Up Plan Condition: GOOD Disposition: HOME/ ROUTINE Instructions: High Blood Pressure in Adults, High Blood Pressure (DC), Hypokalemia (DC), Hypokalemia (GEN) Additional Instructions: Continue taking medication as directed Follow up with MD in one week Referrals: Leonidas Dixon MD [Primary Care Provider] - <Ruel Freitas - Last Filed: 06/16/18 19:09> Provider - Provider Date of Admission: 06/15/18 15:28 Attending physician: Ruel Freitas MD Primary care physician: Leonidas Dixon MD Hospital Course - Lab Results Lab Results: Most Recent Lab Values WBC 4.8 10^3/uL (4.5-11.0) 06/16/18 06:45 RBC 4.47 10^6/uL (3.5-6.1) 06/16/18 06:45 Hgb 12.7 g/dL (14.0-18.0) L 06/16/18 06:45 Hct 38.4 % (42.0-52.0) L 06/16/18 06:45 MCV 85.9 fl (80.0-105.0) 06/16/18 06:45 MCH 28.4 pg (25.0-35.0) 06/16/18 06:45 MCHC 33.1 g/dl (31.0-37.0) 06/16/18 06:45 RDW 14.9 % (11.5-14.5) H 06/16/18 06:45 Plt Count 185 10^3/uL (120.0-450.0) 06/16/18 06:45 MPV 9.9 fl (7.0-11.0) 06/16/18 06:45 Gran % 59.9 % (50.0-68.0) 06/15/18 14:30 Lymph % (Auto) 27.2 % (22.0-35.0) 06/15/18 14:30 [place] % (Auto) 8.3 % (1.0-6.0) H 06/15/18 14:30 Eos % (Auto) 3.7 % (1.5-5.0) 06/15/18 14:30 Baso % (Auto) 0.9 % (0.0-3.0) 06/15/18 14:30 Gran # 3.40 (1.4-6.5) 06/15/18 14:30 Lymph # (Auto) 1.5 (1.2-3.4) 06/15/18 14:30 [place] # (Auto) 0.5 (0.1-0.6) 06/15/18 14:30 Eos # (Auto) 0.2 (0.0-0.7) 06/15/18 14:30 Baso # (Auto) 0.05 K/mm3 (0.0-2.0) 06/15/18 14:30 Sodium 142 mmol/L (132-148) 06/16/18 06:45 Potassium 3.3 mmol/L (3.6-5.0) L 06/16/18 06:45 Chloride 103 mmol/L (98-107) 06/16/18 06:45 Carbon Dioxide 31 mmol/L (21-33) 06/16/18 06:45 Anion Gap 11 (10-20) 06/16/18 06:45 BUN 16 mg/dL (7-21) 06/16/18 06:45 Creatinine 1.0 mg/dl (0.8-1.5) 06/16/18 06:45 Est GFR ( Amer) > 60 06/16/18 06:45 Est GFR (Non-Af Amer) > 60 06/16/18 06:45 Random Glucose 109 mg/dL (70-110) 06/16/18 06:45 Calcium 9.2 mg/dL (8.4-10.5) 06/16/18 06:45 Phosphorus 3.5 mg/dL (2.5-4.5) 06/16/18 06:45 Magnesium 2.1 mg/dL (1.7-2.2) 06/16/18 06:45 Total Bilirubin 0.4 mg/dL (0.2-1.3) 06/16/18 06:45 AST 36 U/L (17-59) 06/16/18 06:45 ALT 37 U/L (7-56) 06/16/18 06:45 Alkaline Phosphatase 49 U/L (38-126) 06/16/18 06:45 Lactate Dehydrogenase 441 U/L (333-699) 06/15/18 14:30 Total Creatine Kinase 80 U/L (35-230) 06/15/18 14:30 Troponin I < 0.01 ng/mL 06/15/18 14:30 Total Protein 6.6 g/dL (5.8-8.3) 06/16/18 06:45 Albumin 3.8 g/dL (3.0-4.8) 06/16/18 06:45 Globulin 2.8 gm/dL 06/16/18 06:45 Albumin/Globulin Ratio 1.3 (1.1-1.8) 06/16/18 06:45 Urine Color Straw (YELLOW) 06/15/18 15:00 Urine Appearance Clear (CLEAR) 06/15/18 15:00 Urine pH 6.0 (4.7-8.0) 06/15/18 15:00 Ur Specific [place] <= 1.005 (1.005-1.035) 06/15/18 15:00 Urine Protein Negative mg/dL (<30 mg/dL) 06/15/18 15:00 Urine Glucose (UA) Negative mg/dL (NEGATIVE) 06/15/18 15:00 Urine Ketones Negative mg/dL (NEGATIVE) 06/15/18 15:00 Urine Blood Negative (NEGATIVE) 06/15/18 15:00 Urine Nitrate Negative (NEGATIVE) 06/15/18 15:00 Urine Bilirubin Negative (NEGATIVE) 06/15/18 15:00 Urine Urobilinogen 0.2 E.U./dL (<1 E.U./dL) 06/15/18 15:00 Ur Leukocyte Esterase Negative [place]/uL (NEGATIVE) 06/15/18 15:00 - Hospital Course Hospital Course: Pt seen and examined. I have reviewed the note of the medical office specialist and agree with it. I have discussed the assessment and plan with the resident. I have reviewed the patient's labs and medications. Pt with HTN and hypokalemia. Most likely has hyperaldosteronism. Aldsoterone and renin have been sent. He has uncontrolled HTN. I have increased his Losartan to 100mg and added Aldactone 100mg. I spoke to Dr Dixon (PMD). The pt prefers Eplerenone to decrease side effects. K has been replaced.
--- NOTE | 2018-06-16 09:16 | CP.PCM.HP ---
<Barrington Franklin - Last Filed: 06/16/18 10:57> History of Present Illness - History of Present Illness History of Present Illness: Barrington Franklin PGY2 IM H&P Note for Dr. Freitas cc: hypokalemia on PMD's labs Fr. Banerjee is a 67 year old Male with a PMH of HTN, hypokalemia, cholecystitis s/p laparoscopic cholecystectomy, incarcinated incisional hernia s/p laparoscop ic hernia repair who presented from Dr. Dixon's office for low potassium. In ED, patient found to be hypertensive with hypokalemia. The patient denies any symptoms of chest pain, shortness of breath, abdominal pain, nausea/vomiting. CXR was unremarkable. EKG was NSR @ 82bpm, LVH w/ widened QRS, prolonged QTc @ 490. The patient states that he has known he was hypokalemic since his gallbladder removal in 2015. He denies any change in his diet and states his diet is varied. 12-pt ROS was reviewed and is otherwise unremarkable. PMD: Dr. Dixon PMH: as above PSH: laparoscopc cholecystectomy (2016), laparoscopic repair of incarcerated incisional hernia (2018), left retinal surgery, appendectomy Meds: as per MAR, reviewed SHx: denies tobacco, EtOH or drug use. 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 FHx: unremarkable Present on Admission - Present on Admission Any Indicators Present on Admission: No Review of Systems - Review of Systems All systems: reviewed and no additional remarkable complaints except (as per HPI) Past Patient History - Infectious Disease Hx of Infectious Diseases: None - Past Medical History & Family History Past Medical History?: Yes Past Family History: Reviewed and not pertinent - Past Social History Smoking Status: Never Smoked Alcohol: None Drugs: Denies Home Situation {Lives}: With Family - CARDIAC Hx Cardiac Disorders: Yes Hx Hypertension: Yes - PULMONARY Hx Respiratory Disorders: No - NEUROLOGICAL Hx Neurological Disorder: No - HEENT Hx HEENT Problems: Yes Other/Comment: detached retina - RENAL Hx Chronic Kidney Disease: No Hx Kidney Stones: Yes Other/Comment: hypokalemia - ENDOCRINE/METABOLIC Hx Endocrine Disorders: No - HEMATOLOGICAL/ONCOLOGICAL Hx Blood Disorders: No - INTEGUMENTARY Hx Dermatological Problems: No - MUSCULOSKELETAL/RHEUMATOLOGICAL Hx Musculoskeletal Disorders: No Hx Falls: No - GASTROINTESTINAL Hx Gastrointestinal Disorders: Yes Hx Diverticulitis: Yes Other/Comment: Umbilical hernia - s/p repair with mesh - GENITOURINARY/GYNECOLOGICAL Hx Genitourinary Disorders: No - PSYCHIATRIC Hx Psychophysiologic Disorder: No Hx Substance Use: No - SURGICAL HISTORY Hx Surgeries: Yes (cholecystectomy, detached retina, incisional hernia, appendectomy) Hx Appendectomy: Yes Hx Cholecystectomy: Yes - ANESTHESIA Hx Anesthesia: Yes Hx Anesthesia Reactions: No Hx Malignant Hyperthermia: No Meds Home Medications: Home Medication List Medication Instructions Recorded Confirmed Type RX: Eplerenone [Inspra] 50 mg PO DAILY #30 tablet 06/16/18 Rx RX: Losartan [Cozaar] 100 mg PO DAILY #30 tab 06/16/18 Rx Allergies/Adverse Reactions: Allergies Allergy/AdvReac Type Severity Reaction Status Date / Time No Known Allergies Allergy Verified 06/15/18 18:38 Physical Exam - Constitutional Appears: Well, Non-toxic, No Acute Distress - Head Exam Head Exam: ATRAUMATIC, NORMAL INSPECTION - Eye Exam Eye Exam: EOMI, Normal appearance, PERRL - ENT Exam ENT Exam: Mucous Membranes Moist, Normal External Ear Exam, Normal Oropharynx - Neck Exam Neck exam: Positive for: Full Rom, Normal Inspection. Negative for: Tenderness - Respiratory Exam Respiratory Exam: NORMAL BREATHING PATTERN. absent: Rales, Rhonchi, Wheezes, Respiratory Distress - Cardiovascular Exam Cardiovascular Exam: RRR, +S1, +S2. absent: JVD, Systolic Murmur - GI/Abdominal Exam GI & Abdominal Exam: Normal Bowel Sounds, Soft. absent: Distended, Tenderness - Extremities Exam Extremities exam: Positive for: full ROM, normal inspection, pedal pulses present. Negative for: joint swelling, pedal edema - Back Exam Back exam: NORMAL INSPECTION. absent: tenderness - Neurological Exam Neurological exam: Alert, CN II-XII Intact, Oriented x3, Reflexes Normal - Psychiatric Exam Psychiatric exam: Normal Affect, Normal Mood - Skin Skin Exam: Normal Color, Warm Results - Vital Signs Recent Vital Signs: Last Vital Signs Temp 97.8 F 06/16/18 08:37 Pulse 67 06/16/18 08:37 Resp 20 06/16/18 08:37 BP 140/97 H 06/16/18 09:13 Pulse Ox 97 06/16/18 08:37 - Labs Result Diagrams: 06/16/18 06:45 06/16/18 06:45 Labs: Laboratory Results - last 24 hr 06/15/18 06/15/18 06/15/18 14:30 14:30 15:00 WBC 5.7 RBC 4.59 Hgb 13.2 L Hct 39.3 L MCV 85.6 MCH 28.8 MCHC 33.6 RDW 14.8 H Plt Count 203 MPV 10.2 Gran % 59.9 Lymph % (Auto) 27.2 [place] % (Auto) 8.3 H Eos % (Auto) 3.7 Baso % (Auto) 0.9 Gran # 3.40 Lymph # (Auto) 1.5 [place] # (Auto) 0.5 Eos # (Auto) 0.2 Baso # (Auto) 0.05 Sodium 142 Potassium 2.9 L* Chloride 99 Carbon Dioxide 34 H Anion Gap 12 BUN 18 Creatinine 0.9 Est GFR ( Amer) > 60 Est GFR (Non-Af Amer) > 60 Random Glucose 100 Calcium 9.8 Phosphorus 3.7 Magnesium 2.2 Total Bilirubin 0.5 AST 39 ALT 45 Alkaline Phosphatase 53 Lactate Dehydrogenase 441 Total Creatine Kinase 80 Troponin I < 0.01 Total Protein 7.1 Albumin 4.2 Globulin 3.0 Albumin/Globulin Ratio 1.4 Urine Color Straw Urine Appearance Clear Urine pH 6.0 Ur Specific [place] <= 1.005 Urine Protein Negative Urine Glucose (UA) Negative Urine Ketones Negative Urine Blood Negative Urine Nitrate Negative Urine Bilirubin Negative Urine Urobilinogen 0.2 Ur Leukocyte Esterase Negative 06/15/18 06/16/18 06/16/18 21:30 06:45 06:45 WBC 4.8 RBC 4.47 Hgb 12.7 L Hct 38.4 L MCV 85.9 MCH 28.4 MCHC 33.1 RDW 14.9 H Plt Count 185 MPV 9.9 Gran % Lymph % (Auto) [place] % (Auto) Eos % (Auto) Baso % (Auto) Gran # Lymph # (Auto) [place] # (Auto) Eos # (Auto) Baso # (Auto) Sodium 142 Potassium 3.4 L 3.3 L Chloride 103 Carbon Dioxide 31 Anion Gap 11 BUN 16 Creatinine 1.0 Est GFR ( Amer) > 60 Est GFR (Non-Af Amer) > 60 Random Glucose 109 Calcium 9.2 Phosphorus 3.5 Magnesium 2.1 Total Bilirubin 0.4 AST 36 ALT 37 Alkaline Phosphatase 49 Lactate Dehydrogenase Total Creatine Kinase Troponin I Total Protein 6.6 Albumin 3.8 Globulin 2.8 Albumin/Globulin Ratio 1.3 Urine Color Urine Appearance Urine pH Ur Specific [place] Urine Protein Urine Glucose (UA) Urine Ketones Urine Blood Urine Nitrate Urine Bilirubin Urine Urobilinogen Ur Leukocyte Esterase Assessment & Plan - Assessment and Plan (Free Text) Assessment: 67 year old Male with a PMH of HTN, hypokalemia, cholecystitis s/p laparoscopic cholecystectomy, incarcinated incisional hernia s/p laparoscopic hernia repair who presented from Dr. Dixon's office for low potassium. HTN could be due to due to essential hypertension, but in combination with hypokalemia, etiology may be secondary due to hyperaldosteronism or other cause. Plan: - serum renin and aldosterone ordered - TSH ordered - Aldactone was added, but after discussion with patient regarding symptoms, he was prescribed Eplironone - cont Lisinopril and Norvasc for HTN - monitor BP - observe overnight on med-surg - HHD - further recs per Dr. Freitas Case was reviewed and discussed with attending, Dr. Zena Franklin PGY2 <Ruel Freitas S - Last Filed: 06/16/18 19:48> Results - Vital Signs Recent Vital Signs: Last Vital Signs Temp 97.8 F 06/16/18 08:37 Pulse 67 06/16/18 08:37 Resp 20 06/16/18 08:37 BP 140/97 H 06/16/18 09:13 Pulse Ox 97 06/16/18 08:37 - Labs Result Diagrams: 06/16/18 06:45 06/16/18 06:45 Labs: Laboratory Results - last 24 hr 06/15/18 06/16/18 06/16/18 21:30 06:45 06:45 WBC 4.8 RBC 4.47 Hgb 12.7 L Hct 38.4 L MCV 85.9 MCH 28.4 MCHC 33.1 RDW 14.9 H Plt Count 185 MPV 9.9 Sodium 142 Potassium 3.4 L 3.3 L Chloride 103 Carbon Dioxide 31 Anion Gap 11 BUN 16 Creatinine 1.0 Est GFR ( Amer) > 60 Est GFR (Non-Af Amer) > 60 Random Glucose 109 Calcium 9.2 Phosphorus 3.5 Magnesium 2.1 Total Bilirubin 0.4 AST 36 ALT 37 Alkaline Phosphatase 49 Total Protein 6.6 Albumin 3.8 Globulin 2.8 Albumin/Globulin Ratio 1.3 Assessment & Plan - Assessment and Plan (Free Text) Plan: Pt seen and examined. I have reviewed the note of the medical coordinator pesticide use and agree with it. I have discussed the assessment and plan with the resident. I have reviewed the patient's labs and medications. Pt with HTN uncontrolled. He also has low K. He many have hyperaldosteroneism. He will need aldosterne and renin levels. Losartan will be increased. Aldactone will be added. Spoke to Dr Dixon ( PMD). Will replace K and recheck K. Check Mg levels.
[2018-06-18 22:54] LABS: ALDO/PRA RATIO 34.6 Ratio (0.9-28.9)
== END 2018-06-16 11:18 | disposition home or self-care (01) ==
LOC: ED 13:37 → ERH 15:28 → 5RNO 17:35
PROVIDERS: ADMIT Internal Medicine Nephrology; ATTEND Internal Medicine Nephrology
DX: E87.6 Hypokalemia (principal); E26.9 Hyperaldosteronism, unspecified; I10 Essential (primary) hypertension; Z87.442 Personal history of urinary calculi
CPT/HCPCS: 36415; 71045; 80053; 81003; 82088; 82550; 83615; 83735; 84100; 84132; 84244; 84484; 85025; 85027; 93005; 99283; G0378; J3480

== ENCOUNTER 2018-12-13 07:48 | Outpatient (CLI) | payer MEDICARE | END 2018-12-13 07:49 | disposition home or self-care (01) | LOC: RAD 07:48 | DX: S46.012A Strain of muscle(s) and tendon(s) of the rotator cuff of left shoulder, initial encounter (principal) ==